=== PATIENT | male | born 1985 | race Caucasian/White ===

== ENCOUNTER 2017-03-02 03:37 | Emergency (ER) | payer SELFPAY | END 2017-03-02 04:30 | disposition home or self-care (01) | DX: T39.315A Adverse effect of propionic acid derivatives, initial encounter (principal); I10 Essential (primary) hypertension; Z88.6 Allergy status to analgesic agent; Z79.899 Other long term (current) drug therapy; F17.210 Nicotine dependence, cigarettes, uncomplicated ==